=== PATIENT | male | born 1935 | race Caucasian/White ===

== ENCOUNTER 2017-12-23 15:37 | Emergency (ER) | payer MEDICARE, BC ==
[~2017-12-23] VITALS: Ht 172.7 cm; Wt 91.8 kg
[~2017-12-23 15:37] MED LIST: ADLT ASA LOW81 MG PO; AMANTADINE100 MG PO; AMOX/K CLAV875 M1 PO; AMOXICILLIN/CL875 MG OR; BL IBUPROFEN200 MG PO; CARB OR; CIPROFLOXACN500 MG PO; FLUARIX QUADRIV1 IN1 IM; FLUZONE SPLT1 M1 IM; LEVAQUIN500 MG PO; LEVO OR; LISINOPRIL10 MG PO; LISINOPRIL20 MG PO; MEDDOSEPAK PO; METOPROL TAR50 MG PO; MULTIVITAM10; MYSOLINE50 M2 PO; PLAVIX75 MG PO; PREDNISONE10 MG PO; PROAIR HFA; PROAIR HFA IN; PROAIR HFA INH; REQUIP3 MG OR; SIMVASTATIN10 MG PO; TYLENOL500 MG PO; VIAGRA50 MG PO; ZITHROMAX500 MG PO
[2017-12-23] MEDS ORDERED: STALEVO 200 PO (15:59)
[2017-12-23] MEDS ORDERED: HYDROCHLOROT25 MG PO (16:01)
[2017-12-23] MEDS ORDERED: DIOVAN160 MG PO (16:01)
[2017-12-23] MEDS ORDERED: BEVESPI AEROSPH1 AER IN (16:02)
[2017-12-23] MEDS ORDERED: FLONASE AL50 MCG/ACT NAB (16:08)
[2017-12-23] MEDS ORDERED: AZELASTINE HCL0.1 % NAB (16:09)
[2017-12-23] MEDS ORDERED: IPRATROPIUM BR0.03 % NAB (16:14)
[2017-12-23 16:21] LABS: HEMATOCRIT 35.2 % (39.0-50.0); HEMOGLOBIN 12.4 g/dl (14.0-18.0); IMMATURE GRANULOCYTES 0.3 % (0.0-1.0); MEAN CELL VOLUME 91.7 fL CALC (80.0-100.0); MEAN CORPUSCULAR HGB 32.3 pG CALC (26.0-32.0); MEAN CORPUSCULAR HGB CONC 35.2 g/L CALC (32.0-36.0); NEUT# 8.24 thou/uL (1.82-7.42); RED BLOOD COUNT 3.84 mill/uL (4.70-6.10); RED CELL DISTRI WIDTH 14.2 % (11.5-15.5)
[2017-12-23 16:38] LABS: INTERNATIONAL NORMALIZED RATIO 0.9 RATIO (0.7-1.3); PROTHROMBIN TIME 10.4 SECONDS (9.0-12.5)
[2017-12-23 16:39] LABS: ALBUMIN 4.2 g/dL (3.2-5.0); ALKALINE PHOSPHATASE 104 u/l (38-126); ANION GAP 16 (6-22 (CALC)); BILIRUBIN, TOTAL 1.2 mg/dL (0.0-1.4); BUN 16 mg/dL (8-23); BUN/CREATININE RATIO 19 (12-20 (CALC)); CARBON DIOXIDE 29 mmol/l (22-30); CHLORIDE 94 mmol/l (95-108); CREATININE 0.9 mg/dL (0.7-1.3); GFR > 60 ML/MIN (>=60 (CALC)); GFR FOR AFR.AMER. > 60 ML/MIN (>=60 (CALC)); POTASSIUM 3.9 mmol/l (3.5-5.1); SGOT/AST 26 u/l (19-48); SGPT/ALT 25 u/l (11-66); SODIUM 135 mmol/l (137-146); TOTAL PROTEIN 7.5 g/dL (6.3-8.2)
[2017-12-23 16:47] LABS: MYOGLOBIN 54 ng/mL (0 - 121)
[2017-12-23 17:28] LABS: URINE BILIRUBIN - DIPSTICK NEGATIVE (NEGATIVE); URINE BLOOD DIPSTICK NEGATIVE (NEGATIVE); URINE COLOR YELLOW; URINE GLUCOSE - DIPSTICK NEGATIVE (NEGATIVE); URINE KETONE NEGATIVE (NEGATIVE); URINE LEUK ESTERASE NEGATIVE (NEGATIVE); URINE NITRITE - DIPSTICK NEGATIVE (Negative); URINE PH 5.5 (4.5-8.0); URINE PROTEIN - DIPSTICK NEGATIVE (NEG-TRACE); URINE UROBILINOGEN - DIPSTICK 0.2 E.U./dL (0.2)
[2017-12-23 17:51] LABS: URINE CLARITY CLEAR
[2017-12-23] MEDS ORDERED: MEDDOSEPAK PO (18:36)
[2017-12-23] MEDS ORDERED: ZITHROMAX500 MG PO (18:36)
[2017-12-23] MEDS ORDERED: PROAIR HFA108 MCG/AC PO (18:36)
[2017-12-23 18:55] VITALS: BP 147/63
== END 2017-12-23 19:30 | disposition home or self-care (01) ==
LOC: ED 15:37
DX: J98.01 Acute bronchospasm (principal); J40 Bronchitis, not specified as acute or chronic; I10 Essential (primary) hypertension; R06.02 Shortness of breath; R05 Cough; Z95.1 Presence of aortocoronary bypass graft
CPT/HCPCS: Q9967

== ENCOUNTER 2021-03-19 10:43 | Emergency (ER) | payer MEDICARE ==
[~2021-03-19] VITALS: Ht 172.7 cm; Wt 76.0 kg
[~2021-03-19 10:43] MED LIST changes: +AZELASTINE HCL0.1 % NAB; +BEVESPI AEROSPH1 AER IN; +DIOVAN160 MG PO; +FLONASE AL50 MCG/ACT NAB; +HYDROCHLOROT25 MG PO; +IPRATROPIUM BR0.03 % NAB; +PROAIR HFA108 MCG/AC PO; +STALEVO 200 PO
[2021-03-19 12:16] LABS: IMMATURE GRANULOCYTES 4.2 % (0.0-5.0); MEAN CORPUSCULAR HGB 29.3 pG CALC (26.0-32.0); MEAN CORPUSCULAR HGB CONC 29.6 g/dL CAL (32.0-36.0); NEUT# 6.58 thou/uL (1.82-7.42); RED BLOOD COUNT 1.91 mill/uL (4.70-6.10); RED CELL DISTRI WIDTH 16.1 % (11.5-15.5)
[2021-03-19 12:18] LABS: HEMATOCRIT 18.9 % (39.0-50.0); HEMOGLOBIN 5.6 g/dl (14.0-18.0)
[2021-03-19 12:38] LABS: ALBUMIN 3.2 g/dL (3.2-5.0); ALKALINE PHOSPHATASE 75 u/l (38-126); ANION GAP 9 (6-22 (CALC)); BILIRUBIN, TOTAL 0.5 mg/dL (0.0-1.4); BUN 41 mg/dL (8-23); BUN/CREATININE RATIO 35 (12-20 (CALC)); CARBON DIOXIDE 30 mmol/l (22-30); CHLORIDE 100 mmol/l (95-108); CREATININE 1.2 mg/dL (0.7-1.3); GFR 57 ML/MIN (>=60 (CALC)); GFR FOR AFR.AMER. > 60 ML/MIN (>=60 (CALC)); POTASSIUM 3.6 mmol/l (3.5-5.1); SGOT/AST 29 u/l (19-48); SODIUM 136 mmol/l (137-146); TOTAL PROTEIN 7.2 g/dL (6.3-8.2)
[2021-03-19 12:39] LABS: ACT PARTIAL THROMBO TIME 28.6 SECONDS (20.0-32.5)
[2021-03-19 12:45] LABS: INTERNATIONAL NORMALIZED RATIO 1.2 RATIO (0.7-1.3)
[2021-03-19 13:59] VITALS: BP 111/52
== END 2021-03-19 14:10 | disposition short-term general hospital (02) ==
LOC: ED 10:43
DX: I21.4 Non-ST elevation (NSTEMI) myocardial infarction (principal); D64.9 Anemia, unspecified; D46.9 Myelodysplastic syndrome, unspecified; L89.159 Pressure ulcer of sacral region, unspecified stage; I10 Essential (primary) hypertension; J44.9 Chronic obstructive pulmonary disease, unspecified; Z95.1 Presence of aortocoronary bypass graft; Z20.822 Contact with and (suspected) exposure to COVID-19